=== PATIENT | female | born 1960 | race Two or more races ===

== ENCOUNTER 2017-08-30 09:59 | Emergency (ER) | payer MEDICARE, MEDICAID ==
[~2017-08-30] VITALS: Ht 170.2 cm; Wt 90.7 kg
[2017-08-30] MEDS ORDERED: diphenhydrAMINE HCL 50 MG/ML VIAL ONE (10:19)
[2017-08-30 10:24] VITALS: BP 139/88
[2017-08-30] MEDS ORDERED: diphenhydrAMINE HCL 50 MG/ML VIAL IM ONE (10:30)
== END 2017-08-30 10:25 | disposition home or self-care (01) ==
LOC: ER 10:01
DX: T78.40XA Allergy, unspecified, initial encounter (principal); Z90.49 Acquired absence of other specified parts of digestive tract; X58.XXXA Exposure to other specified factors, initial encounter; Y93.89 Activity, other specified; Y92.89 Other specified places as the place of occurrence of the external cause; Y99.8 Other external cause status
CPT/HCPCS: 96372; 99283; A4606; J1200; Z7610

== ENCOUNTER 2017-10-31 09:56 | Emergency (ER) | payer MEDICARE, MEDICAID ==
[~2017-10-31] VITALS: Ht 170.2 cm; Wt 90.7 kg
[2017-10-31 09:56] VITALS: BP 137/80
[2017-10-31] MEDS ORDERED: LORATADINE 10 MG TABLET PO SCH (11:00)
[2017-10-31] MEDS ORDERED: methylPREDNISolone SOD SUCC 125 MG/2ML VIAL IV ONE (11:00)
[2017-10-31] MEDS ORDERED: methylPREDNISolone SOD SUCC 125 MG/2ML VIAL ONE (11:06)
[2017-10-31] MEDS ORDERED: LORATADINE 10 MG TABLET ONE (11:06)
== END 2017-10-31 12:04 | disposition home or self-care (01) ==
LOC: ER 09:58
DX: T78.49XA Other allergy, initial encounter (principal); Z90.49 Acquired absence of other specified parts of digestive tract; X58.XXXA Exposure to other specified factors, initial encounter
CPT/HCPCS: A4606; J2930; Z7610

== ENCOUNTER 2017-11-01 22:12 | Emergency (ER) | payer MEDICARE, MEDICAID ==
[~2017-11-01] VITALS: Ht 162.6 cm; Wt 90.7 kg
[2017-11-01 22:18] VITALS: BP 153/77
[2017-11-01] MEDS ORDERED: diphenhydrAMINE HCL 50 MG/ML VIAL ONE (23:13)
[2017-11-01] MEDS ORDERED: diphenhydrAMINE HCL 50 MG/ML VIAL IM ONE (23:30)
== END 2017-11-01 23:18 | disposition home or self-care (01) ==
LOC: ER 22:16
DX: L50.0 Allergic urticaria (principal); R21 Rash and other nonspecific skin eruption; Z90.49 Acquired absence of other specified parts of digestive tract
CPT/HCPCS: 96372; 99283; A4606; J1200; Z7610

== ENCOUNTER 2018-11-29 00:13 | Emergency (ER) | payer MEDICARE, MEDICAID ==
[~2018-11-29] VITALS: Ht 170.2 cm; Wt 90.7 kg
--- NOTE | 2018-11-29 00:33 | NUR ---
BIB SELF WITH DAUGTHER. AAOX4. BREATHING EVEN AND UNLABORED. AMBULATORY. C/O LOWER ABDOMINLA PAIN X 3 DAYS W/ REPORT OF N/V/D. DENIES CP. PT TO ER BED 10. MD AT BEDSIDE FOR EVAL.
--- NOTE | 2018-11-29 00:56 | NUR ---
IV LINE OBTAINED ON R AC 20G BLOOD DRAWN AND SENT TO LAB
[2018-11-29] MEDS ORDERED: MORPHINE SULFATE INJ 4 MG/ML DISP.SYRIN ONE (00:58)
[2018-11-29] MEDS ORDERED: ONDANSETRON HCL/PF 4 MG/2 ML VIAL ONE (00:58)
[2018-11-29] MEDS ORDERED: ONDANSETRON HCL/PF 4 MG/2 ML VIAL IVP ONE (01:00)
[2018-11-29] MEDS ORDERED: MORPHINE SULFATE INJ 2 MG/ML DISP.SYRIN IV ONE (01:00)
[2018-11-29] MEDS ORDERED: IV NS 0.9% 500 ML BAG IV ONE (01:00)
[2018-11-29 01:09] LABS: BASOPHILS % (AUTO) 0.4 % (0.0-2.0); EOSINOPHILS % (AUTO) 6.5 % (0.0-6.0); HEMATOCRIT 40 % (33-45); HEMOGLOBIN 13.5 g/dL (11.5-14.8); LYMPHOCYTES # (AUTO) 1.5 /CMM (0.8-4.8); LYMPHOCYTES % (AUTO) 16.4 % (20.0-44.0); MEAN CORPUSCULAR HGB CONC 34 g/dl (31.0-36.0); MEAN CORPUSCULAR VOLUME 94 fL (82-100); MONOCYTES # (AUTO) 0.5 /CMM (0.1-1.30); NEUTROPHILS # (AUTO) 6.4 /CMM (1.8-8.9); NEUTROPHILS % (AUTO) 70.7 % (43.0-81.0); PLATELET COUNT (AUTO) 345 /CMM (150-450); RED BLOOD CELL COUNT(AUTO) 4.24 MIL/uL (4.0-5.2); WHITE BLOOD COUNT (AUTO) 9.1 K/uL (4.3-11.0)
[2018-11-29 01:16] LABS: APPEARANCE,URINE Slightly Cloudy (CLEAR); BILIRUBIN,URINE SMALL (NEGATIVE); BLOOD, URINE Trace-intact Ery/uL (NEGATIVE); COLOR,URINE Yellow (YELLOW); KETONES,URINE 15 (NEGATIVE); LEUKOCYTE ESTERASE ,URINE Negative (NEGATIVE); NITRITE, URINE Negative (NEGATIVE); PH,URINE 5.5 (5.0-8.0); PROTEIN,URINE 30 mg/dl (NEGATIVE); UGLUCOSE Negative (NEGATIVE)
--- NOTE | 2018-11-29 01:20 | NUR ---
PT BEING WEHEELED TO CT ON FIORELLA
[2018-11-29 01:23] LABS: CALCIUM, SERUM 8.8 mg/dL (8.5-10.1); CARBON DIOXIDE 25 mmol/L (21-32); CHLORIDE 102 mmol/L (98-107); CREATININE 0.8 mg/dL (0.6-1.3); GLUCOSE 114 mg/dL (74-106); POTASSIUM 3.6 mmol/L (3.5-5.1); SODIUM SERUM 139 mmol/L (136-145); UREA NITROGEN, BLOOD 15 mg/dL (7-18)
[2018-11-29 01:28] LABS: ALANINE AMINOTRANSFERASE 26 U/L (12-78); ALBUMIN 3.8 g/dL (3.4-5.0); ALKALINE PHOSPHATASE 59 U/L (46-116); ASPARTATE AMINOTRANSFERASE 15 U/L (15-37); BILIRUBIN,DIRECT 0.1 mg/dL (0.0-0.2); BILIRUBIN,TOTAL 0.7 mg/dL (0.2-1.0); LIPASE 140 U/L (73-393); TOTAL PROTEIN, SERUM 7.3 g/dL (6.4-8.2)
--- NOTE | 2018-11-29 01:29 | NUR ---
BACK FROM CT
[2018-11-29 01:34] LABS: BACTERIA,URINE None seen /HPF (None Seen); MUCUS,URINE Moderate /LPF (None Seen); RBC,URINE 0-2 /HPF (0-2); SQUAMOUS EPITHELIAL CELL,UR Moderate /HPF (None Seen); WBC,URINE 0-2 /HPF (0-3)
[2018-11-29] MEDS ORDERED: CIPROFLOXACIN HCL 500 MG TABLET ONE (02:59)
[2018-11-29] MEDS ORDERED: METRONIDAZOLE 500 MG TABLET ONE (02:59)
[2018-11-29] MEDS ORDERED: CIPROFLOXACIN HCL 500 MG TABLET PO ONE (03:00)
[2018-11-29] MEDS ORDERED: METRONIDAZOLE 500 MG TABLET PO ONE (03:00)
[2018-11-29 03:25] VITALS: BP 107/56
--- NOTE | 2018-11-29 03:25 | NUR ---
Patient discharged to home in stable condition. Written and verbal after care instructions given. Patient verbalizes understanding of instruction.IV removed. Catheter intact and site benign. Pressure and 4x4 applied to site. No bleeding noted.Pt ambulatory with a steady gait
== END 2018-11-29 03:29 | disposition home or self-care (01) ==
LOC: ER 00:15
DX: A08.39 Other viral enteritis (principal); Z90.49 Acquired absence of other specified parts of digestive tract
CPT/HCPCS: 36415; 74176; 80048; 80076; 81001; 83690; 84484; 85025; 93005; 96374; 96375; 99284; J2270; J2405; J7040; 81000-TC